=== PATIENT | male | born 1960 | race Caucasian/White ===

== ENCOUNTER 2016-10-14 04:58 | Emergency (ER) | payer OTHER ==
[2016-10-14] VITALS (10 sets, daily range): BP systolic 151–220; BP diastolic 95–138; PULSE 86–107; RESP 16–24; TEMP 97.7–98.1; O2SAT 94–100
[~2016-10-14] VITALS: Ht 188 cm; Wt 107.5 kg
[~2016-10-14 04:58] MED LIST: CETI5SOL PO; CVS20TAB PO; FORT500T3 PO; HYDR12.56 PO; LISI-363 PO; MELO15 PO; SIMV40TA PO
[2016-10-14] MEDS ORDERED: SIMV40TA PO (05:23)
[2016-10-14] MEDS ORDERED: LISI-515 PO ×2 (05:23→09:13)
[2016-10-14] MEDS ORDERED: METF1000 PO (05:23)
[2016-10-14] MEDS ORDERED: OMEP20TA PO (05:23)
[2016-10-14] MEDS ORDERED: GLIP10TA6 PO (05:23)
--- NOTE | 2016-10-14 05:56 | PD ---
HPI Chief Complaint: Injury Time Seen by Provider: 05:22 Travel History International Travel<30 days: No Contact w/Intl Traveler<30days: No Traveled to known affect area: No History of Present Illness HPI The patient is a 56 year old male who presents to the [facility] emergency department with a history of right shoulder pain that began again yesterday while he was at work. He reportedly works as an cash accountant. He denies doing any heavy lifting or any new exercise program. He denies having any trauma to the shoulder. He reports that he has had problems with shoulder pain in the past and many years ago had an MRI of the shoulder. He denies being diagnosed with anything in particular. He reports that he is followed by the [facility]. The patient additionally reports that he does have a history of hypertension, however he was taken off of his blood pressure medicine 6 months ago because his blood pressure was well controlled. The patient denies having any chest pain, chest pressure, or shortness of breath. He does report that last week he had neck pain that radiated up into his head and tingling sensations in the second, third, and fourth digit that occurred last night that seemed to be positional with neck and shoulder movement. The patient has a prior history of diabetes mellitus and hyperlipidemia. He is unsure what his blood sugar has been recently. He has not checked it recently. He has been regularly taking his metformin and glipizide. The patient denies any recent fevers, cough, congestion, abdominal pain, vomiting, diarrhea, urinary symptoms , one-sided weakness, numbness to his extremities, facial droop, difficulty with word finding ability, vision changes, or dizziness. The patient reports that his shoulder pain is worse with any type of movement of his shoulder. The patient reports that the pain in his shoulder radiates from the scapula through his shoulder anteriorly. He denies having any redness or swelling. [facility] Past Medical History Narrative Medical The patient's past medical history is significant for diabetes mellitus, acid reflux, history of benign prostatic hypertrophy, history of hypertension, hyperlipidemia. Diabetes: Yes Patient Takes Glucophage: Yes Gastrointestinal Disorders: Yes (ESOPHAGEAL REFLUX) Genitourinary: Yes (KIDNEY DISEASE/ ENLARGED PROSTATE) Hypertension: Yes Reproductive: Yes (ERECTILE DISORDER) Triglycerides - High: Yes Past Surgical History Narrative Surgical The patient's past surgical history is significant for right hand surgery as a child Social History Alcohol Use: Yes (SOCIALLY) Tobacco Use: No Substance Use: No Allergies-Medications (Allergen,Severity, Reaction): Coded Allergies: Aspirin (Verified Allergy, Unknown, 10/14/16) SWELLING Reported Meds & Prescriptions Reported Meds & Active Scripts Active Lisinopril 20 Mg Tab 20 Mg PO DAILY Boelus (Hydrocodone-Acetaminophen) 5-325 mg Tab 1 Tab PO Q6H PRN Amlodipine (Amlodipine Besylate) 10 Mg Tab 10 Mg PO DAILY Reported Simvastatin 40 Mg Tab 40 Mg PO HS Lisinopril 20 Mg Tab 20 Mg PO DAILY Omeprazole 20 Mg Tab 20 Mg PO DAILY Glipizide 10 Mg Tab 10 Mg PO BIDAC Take 30 minutes before a meal Metformin (Metformin HCl) 1,000 Mg Tab 1,000 Mg PO BIDPC With meals Review of Systems Except as stated in HPI: all other systems reviewed are Neg General / Constitutional: No: Fever Eyes: No: Visual changes HENT: Positive: Headaches, Neck Pain, No: Neck Stiffness Cardiovascular: No: Chest Pain or Discomfort, Dyspnea on exertion Respiratory: No: Shortness of Breath Gastrointestinal: No: Abdominal Pain Genitourinary: No: Dysuria Musculoskeletal: Positive: Myalgias, Arthralgias, Pain Skin: No Rash Neurologic: Positive: Paresthesia (right fingers), No: Weakness, Focal Abnormalities, Headache, Slurred Speech, Sensory Disturbance Psychiatric: No: Depression Endocrine: No: Polydipsia Hematologic/Lymphatic: No: Easy Bruising Physical Exam Narrative General: The patient is a well-developed well-nourished male in no acute distress. Head and Neck exam: Head is normocephalic atraumatic. Eyes: EOMI, pupils are equal round and reactive to light. Nose: Midline septum with pink mucous membranes Mouth: Dentition unremarkable. Moist mucus membranes. Posterior oropharynx is not erythematous. No tonsillar hypertrophy. Uvula midline. Airway patent. Neck: No palpable lymphadenopathy. No nuchal rigidity. No thyromegaly. Cardiovascular: Regular rate and rhythm without murmurs, gallops, or rubs. Lungs: Clear to auscultation bilaterally. No wheezes, rhonchi, or rales. Abdomen: Soft, without tenderness to palpation in all 4 quadrants of the abdomen. No guarding, rebound, or rigidity. Normal bowel sounds are audible. No tenderness on palpation of McBurney's point. Negative Arellano sign. Extremities: No clubbing, cyanosis, or edema. 2+ pulses in all 4 extremities. The patient on examination of the of the area of interest, the right shoulder is noted to have pain with any type of range of motion of the shoulder. He has no redness or swelling. The patient has full range of motion with active assistance, however increased pain with abduction above shoulder height of the shoulder. The patient also has pain with resisted abduction of his right shoulder and into can't testing. Back: No costovertebral angle tenderness to palpation. Neurologic Exam: Cranial nerves 2-12 were intact on exam. Strength is 5/5 in all 4 extremities. No sensory deficits noted. Skin Exam: No rash noted. Intact skin that is warm and dry. Data Data Last Documented VS Vital Signs Date Time Temp Pulse Resp B/P Pulse Ox O2 Delivery O2 Flow Rate FiO2 10/14/16 09:46 98 24 151/95 97 Room Air 10/14/16 06:21 98.1 Orders Electrocardiogram (10/14/16 05:22) Ice/Cold Pack (10/14/16 05:22) Shoulder, Complete (>2vws) (10/14/16 05:22) Ct Brain W/O Iv Contrast(Rout) (10/14/16 06:12) Ct Cerv Spine W/O Contrast (10/14/16 06:12) Complete Blood Count With Diff (10/14/16 06:12) Comprehensive Metabolic Panel (10/14/16 06:12) Creatine Kinase (Cpk) (10/14/16 06:12) Ckmb (Isoenzyme) Profile (10/14/16 06:12) Troponin I (10/14/16 06:12) B-Type Natriuretic Peptide (10/14/16 06:12) Prothrombin Time / Inr (Pt) (10/14/16 06:12) Act Partial Throm Time (Ptt) (10/14/16 06:12) Magnesium (Mg) (10/14/16 06:12) Chest, Single Ap (10/14/16 06:12) Iv Access Insert/Monitor (10/14/16 06:12) Ecg Monitoring (10/14/16 06:12) Oximetry (10/14/16 06:12) Acetamin-Hydrocod 325-5 Mg ([place] 5-325 (10/14/16 06:30) Nitroglycerin Sl (Nitrostat Sl) (10/14/16 06:30) Labetalol Inj (Trandate Inj) (10/14/16 07:30) CKMB (10/14/16 06:27) CKMB% (10/14/16 06:27) Labetalol Inj (Trandate Inj) (10/14/16 08:30) Labs Laboratory Tests Test 10/14/16 06:27 White Blood Count 9.7 TH/MM3 Red Blood Count 5.78 MIL/MM3 Hemoglobin 15.6 GM/DL Hematocrit 45.0 % Mean Corpuscular Volume 77.9 FL Mean Corpuscular Hemoglobin 26.9 PG Mean Corpuscular Hemoglobin 34.6 % Concent Red Cell Distribution Width 14.7 % Platelet Count 168 TH/MM3 Mean Platelet Volume 11.2 FL Neutrophils (%) (Auto) 62.9 % Lymphocytes (%) (Auto) 24.9 % Monocytes (%) (Auto) 9.3 % Eosinophils (%) (Auto) 2.0 % Basophils (%) (Auto) 0.9 % Neutrophils # (Auto) 6.1 TH/MM3 Lymphocytes # (Auto) 2.4 TH/MM3 Monocytes # (Auto) 0.9 TH/MM3 Eosinophils # (Auto) 0.2 TH/MM3 Basophils # (Auto) 0.1 TH/MM3 CBC Comment DIFF FINAL Differential Comment Prothrombin Time 10.2 SEC Prothromb Time International 0.9 RATIO Ratio Activated Partial 25.3 SEC Thromboplast Time Sodium Level 139 MEQ/L Potassium Level 3.9 MEQ/L Chloride Level 104 MEQ/L Carbon Dioxide Level 24.8 MEQ/L Anion Gap 10 MEQ/L Blood Urea Nitrogen 8 MG/DL Creatinine 0.86 MG/DL Estimat Glomerular Filtration 93 ML/MIN Rate Random Glucose 218 MG/DL Calcium Level 8.6 MG/DL Magnesium Level 1.6 MG/DL Total Bilirubin 0.7 MG/DL Aspartate Amino Transf 31 U/L (AST/SGOT) Alanine Aminotransferase 39 U/L (ALT/SGPT) Alkaline Phosphatase 74 U/L Total Creatine Kinase 216 U/L Creatine Kinase MB 1.7 NG/ML Troponin I 0.02 NG/ML B-Type Natriuretic Peptide 51 PG/ML Total Protein 7.5 GM/DL Albumin 3.6 GM/DL [facility] Decision Making Medical Screen Exam Complete: Yes Emergency Medical Condition: Yes Medical Record Reviewed: Yes Interpretation(s) Last Impressions Head CT 10/14/16611 Signed Impressions: Service Date/Time: Friday, October 14, 2016 06:43 - CONCLUSION: Negative noncontrast CT brain. Omi Zimmerman MD Chest X-Ray 10/14/16611 Signed Impressions: Service Date/Time: Friday, October 14, 2016 06:30 - CONCLUSION: The lungs are clear. Omi Zimmerman MD Cervical Spine CT 10/14/16611 Signed Impressions: Service Date/Time: Friday, October 14, 2016 06:43 - CONCLUSION: Straightening of the cervical lordosis. Otherwise negative exam. Omi Zimmerman MD Shoulder X-Ray 10/14/16521 Signed Impressions: Service Date/Time: Friday, October 14, 2016 05:33 - CONCLUSION: Negative exam. Omi Zimmerman MD Differential Diagnosis Right shoulder arthritis, versus rotator cuff tear, versus cervical radiculopathy, versus acute coronary syndrome, versus septic arthritis Narrative Course During the course of the patients emergency department visit, the patients history, examination, and differential diagnosis were reviewed with the patient. The patient had IV access obtained and blood work sent for analysis. The patient was placed on a space technologist with oximetry and blood pressure monitoring. An EKG was done on arrival. The patient's EKG shows a sinus rhythm heart rate of 96, nonspecific T-wave abnormalities, no acute ST segment elevation or depression, QRS duration 105 ms, QTC 406 ms. the patient's blood pressure was noted to be greatly elevated on initial arrival at 220/133. The patient's pulse is 105 on arrival. This could be related to pain. A CT scan of the head and neck was ordered, chest x-ray was ordered, right shoulder x-ray was ordered. The patient was initially provided nitroglycerin sublingual times one. Lortab 5 mg by mouth 1 for pain. The patient has a reported severe aspirin allergy. The patients laboratory studies were reviewed and remarkable for a white count of 9.7, hemoglobin 15.6, platelets 168 with 9.3 monocytes Radiology studies were reviewed and remarkable for a shoulder x-ray that shows no acute abnormality. The patient's case was checked out to the oncoming emergency physician to disposition the patient based on the conclusion of his workup. Diagnosis Primary Impression: Right shoulder pain Qualified Code: M25.511 - Acute pain of right shoulder Scripts Lisinopril 20 Mg Tab20 Mg PO DAILY #30 TAB Ref 0 Prov:Alok Dodge MD 10/14/16 Hydrocodone-Acetaminophen ([place]elus)5-325 mg Tab1 Tab PO Q6H PRN (PAIN) #30 TAB Ref 0 Prov:Alok Dodge MD 10/14/16 Amlodipine 10 Mg Tab10 Mg PO DAILY #30 TAB Ref 0 Prov:Alok Dodge MD 10/14/16 Gabriela Khan MD Oct 14, 2016 05:56
--- NOTE | 2016-10-14 06:18 | RADRPT ---
EXAM DATE/TIME: 10/14/2016 05:33 [facility] COMPARISON: No previous studies available for comparison. INDICATIONS : Right shoulder pain from unknown injury. MEDICAL HISTORY : None. SURGICAL HISTORY : None. ENCOUNTER: Initial ACUITY: 1 day PAIN SCORE: 8/10 LOCATION: Right shoulder FINDINGS: Multiple view examination of the right shoulder demonstrates no evidence of fracture or dislocation. The glenohumeral and acromioclavicular joints are maintained. There is normal range of motion betwe en internal and external rotation. Bony mineralization is normal. CONCLUSION: Negative exam. Omi Zimmerman MD on October 14, 2016 at 6:15 Board Certified Radiologist. This report was verified electronically.
[2016-10-14] MEDS ORDERED: NITROGLYCERIN 0.4 MG SL 25 TABS/BTL SL ONE (06:30)
[2016-10-14] MEDS ORDERED: ACETAMINOPHEN/HYDROcodone 325 MG/5 MG TAB PO ONE (06:30)
--- NOTE | 2016-10-14 06:45 | RADRPT ---
EXAM DATE/TIME: 10/14/2016 06:30 [facility] COMPARISON: CHEST SINGLE AP, March 01, 2013, 13:46. INDICATIONS : Chest pain. MEDICAL HISTORY : None. SURGICAL HISTORY : None. ENCOUNTER: Initial ACUITY: 1 day PAIN SCORE: 110 LOCATION: Right chest FINDINGS: A single view of the chest demonstrates the lungs to be symmetrically aerated without evidence of mas s, infiltrate or effusion. The cardiomediastinal contours are unremarkable. Osseous structures are intact. CONCLUSION: The lungs are clear. Omi Zimmerman MD on October 14, 2016 at 6:43 Board Certified Radiologist. This report was verified electronically.
--- NOTE | 2016-10-14 06:50 | RADRPT ---
EXAM DATE/TIME: 10/14/2016 06:43 [facility] COMPARISON: No previous studies available for comparison. INDICATIONS : Cephalgia with right shoulder pain. RADIATION DOSE: 37.30 CTDIvol (mGy) MEDICAL HISTORY : Hypertension. Diabetes mellitus type 1. Esophageal reflux. SURGICAL HISTORY : None. ENCOUNTER: Initial ACUITY: 1 day PAIN SCALE: 6/10 LOCATION: cranial TECHNIQUE: Multiple contiguous axial images were obtained of the head. Using automated exposure control and adj ustment of the mA and/or kV according to patient size, radiation dose was kept as low as reasonably a chievable to obtain optimal diagnostic quality images. DICOM format image data is available electro nically for review and comparison. FINDINGS: CEREBRUM: The ventricles are normal for age. No evidence of midline shift, mass lesion, hemorrhage or acute in farction. No extra-axial fluid collections are seen. POSTERIOR FOSSA: The cerebellum and brainstem are intact. The 4th ventricle is midline. The cerebellopontine angle i s unremarkable. EXTRACRANIAL: The visualized portion of the orbits is intact. SKULL: The calvaria is intact. No evidence of skull fracture. CONCLUSION: Negative noncontrast CT brain. Omi Zimmerman MD on October 14, 2016 at 6:48 Board Certified Radiologist. This report was verified electronically.
--- NOTE | 2016-10-14 07:00 | RADRPT ---
EXAM DATE/TIME: 10/14/2016 06:43 [facility] COMPARISON: No previous studies available for comparison. INDICATIONS : Right shoulder pain. RADIATION DOSE: 23.66 CTDIvol (mGy) MEDICAL HISTORY : Hypertension. Diabetes mellitus type 2. Esophageal reflux. SURGICAL HISTORY : None. ENCOUNTER: Initial ACUITY: 1 day PAIN SCALE: 6/10 LOCATION: Right neck TECHNIQUE: Volumetric scanning of the cervical spine was performed. Multiplanar reconstructions in the sagittal, coronal and oblique axial planes were performed. Using automated exposure control and adjustment o f the mA and/or kV according to patient size, radiation dose was kept as low as reasonably achievable to obtain optimal diagnostic quality images. DICOM format image data is available electronically f or review and comparison. FINDINGS: There is straightening of the cervical lordosis. Vertebral body height is maintained. No compressio n deformity or spondylolisthesis. The atlantoaxial articulation is intact. The posterior elements a re normal without evidence of locked or perched facets. C2-C3: No fracture seen. The bony neural foramina are patent. C3-C4: No fracture seen. The bony neural foramina are patent. C4-C5: No fracture seen. The bony neural foramina are patent. C5-C6: No fracture seen. The bony neural foramina are patent. C6-C7: No fracture seen. The bony neural foramina are patent. C7-T1: No fracture seen. The bony neural foramina are patent. CONCLUSION: Straightening of the cervical lordosis. Otherwise negative exam. Omi Zimmerman MD on October 14, 2016 at 6:54 Board Certified Radiologist. This report was verified electronically.
[2016-10-14 07:04] LABS: AUTOMATED NEUTROPHIL # 6.1 TH/MM3 (1.8-7.7); BASOPHIL # 0.1 TH/MM3 (0-0.2); BASOPHIL % 0.9 % (0.0-2.0); EOSINOPHIL # 0.2 TH/MM3 (0-0.4); HEMO FLAGS DIFF FINAL; LYMPH % 24.9 % (9.0-44.0); LYMPHOCYTE # 2.4 TH/MM3 (1.0-4.8); MEAN CELL VOLUME 77.9 FL (80.0-100.0); MEAN CORPUSCULAR HEMOGLOBIN 26.9 PG (27.0-34.0); MEAN CORPUSCULAR HGB CONC 34.6 % (32.0-36.0); MONO % 9.3 % (0.0-8.0); NEUT % 62.9 % (16.0-70.0); PLATELET COUNT 168 TH/MM3 (150-450); RED BLOOD COUNT 5.78 MIL/MM3 (4.50-5.90); RED CELL DISTRIBUTION WIDTH 14.7 % (11.6-17.2); WHITE BLOOD COUNT 9.7 TH/MM3 (4.0-11.0)
[2016-10-14 07:13] LABS: ALT (GPT) 39 U/L (12-78)
[2016-10-14 07:16] LABS: APTT (PATIENT) 25.3 SEC (24.3-30.1); INTERNATIONAL NORMALIZED RATIO 0.9 RATIO; PROTHROMBIN TIME - PATIENT 10.2 SEC (9.8-11.6)
[2016-10-14 07:19] LABS: ALKALINE PHOSPHATASE 74 U/L (45-117); ANION GAP 10 MEQ/L (5-15); BICARBONATE 24.8 MEQ/L (21.0-32.0); BLOOD UREA NITROGEN 8 MG/DL (7-18); CHLORIDE 104 MEQ/L (98-107); GLOMERULAR FILTRATION RATE 93 ML/MIN (>89); SODIUM (NA) 139 MEQ/L (136-145); TOTAL BILIRUBIN ADULT 0.7 MG/DL (0.2-1.0)
[2016-10-14 07:20] LABS: AST (GOT) 31 U/L (15-37); CREATINE KINASE 216 U/L (39-308); MAGNESIUM 1.6 MG/DL (1.5-2.5); POTASSIUM 3.9 MEQ/L (3.5-5.1)
[2016-10-14] MEDS ORDERED: LABETALOL HCL 100 MG/20 ML VIAL IV PUSH ONE ×2 (07:30→08:30)
[2016-10-14 07:32] LABS: CKMB 1.7 NG/ML (0.5-3.6)
--- NOTE | 2016-10-14 08:20 | PD ---
Physical Exam Narrative Patient was seen by ED physician and signed out to me. Data Data Last Documented VS Vital Signs Date Time Temp Pulse Resp B/P Pulse Ox O2 Delivery O2 Flow Rate FiO2 10/14/16 08:24 94 22 174/113 96 Room Air 10/14/16 06:21 98.1 Orders Electrocardiogram (10/14/16 05:22) Ice/Cold Pack (10/14/16 05:22) Shoulder, Complete (>2vws) (10/14/16 05:22) Ct Brain W/O Iv Contrast(Rout) (10/14/16 06:12) Ct Cerv Spine W/O Contrast (10/14/16 06:12) Complete Blood Count With Diff (10/14/16 06:12) Comprehensive Metabolic Panel (10/14/16 06:12) Creatine Kinase (Cpk) (10/14/16 06:12) Ckmb (Isoenzyme) Profile (10/14/16 06:12) Troponin I (10/14/16 06:12) B-Type Natriuretic Peptide (10/14/16 06:12) Prothrombin Time / Inr (Pt) (10/14/16 06:12) Act Partial Throm Time (Ptt) (10/14/16 06:12) Urinalysis - C+S If Indicated (10/14/16 06:12) Magnesium (Mg) (10/14/16 06:12) Chest, Single Ap (10/14/16 06:12) Iv Access Insert/Monitor (10/14/16 06:12) Ecg Monitoring (10/14/16 06:12) Oximetry (10/14/16 06:12) Acetamin-Hydrocod 325-5 Mg ([place] 5-325 (10/14/16 06:30) Nitroglycerin Sl (Nitrostat Sl) (10/14/16 06:30) Labetalol Inj (Trandate Inj) (10/14/16 07:30) CKMB (10/14/16 06:27) CKMB% (10/14/16 06:27) Labetalol Inj (Trandate Inj) (10/14/16 08:30) Labs Laboratory Tests Test 10/14/16 06:27 White Blood Count 9.7 TH/MM3 Red Blood Count 5.78 MIL/MM3 Hemoglobin 15.6 GM/DL Hematocrit 45.0 % Mean Corpuscular Volume 77.9 FL Mean Corpuscular Hemoglobin 26.9 PG Mean Corpuscular Hemoglobin 34.6 % Concent Red Cell Distribution Width 14.7 % Platelet Count 168 TH/MM3 Mean Platelet Volume 11.2 FL Neutrophils (%) (Auto) 62.9 % Lymphocytes (%) (Auto) 24.9 % Monocytes (%) (Auto) 9.3 % Eosinophils (%) (Auto) 2.0 % Basophils (%) (Auto) 0.9 % Neutrophils # (Auto) 6.1 TH/MM3 Lymphocytes # (Auto) 2.4 TH/MM3 Monocytes # (Auto) 0.9 TH/MM3 Eosinophils # (Auto) 0.2 TH/MM3 Basophils # (Auto) 0.1 TH/MM3 CBC Comment DIFF FINAL Differential Comment Prothrombin Time 10.2 SEC Prothromb Time International 0.9 RATIO Ratio Activated Partial 25.3 SEC Thromboplast Time Sodium Level 139 MEQ/L Potassium Level 3.9 MEQ/L Chloride Level 104 MEQ/L Carbon Dioxide Level 24.8 MEQ/L Anion Gap 10 MEQ/L Blood Urea Nitrogen 8 MG/DL Creatinine 0.86 MG/DL Estimat Glomerular Filtration 93 ML/MIN Rate Random Glucose 218 MG/DL Calcium Level 8.6 MG/DL Magnesium Level 1.6 MG/DL Total Bilirubin 0.7 MG/DL Aspartate Amino Transf 31 U/L (AST/SGOT) Alanine Aminotransferase 39 U/L (ALT/SGPT) Alkaline Phosphatase 74 U/L Total Creatine Kinase 216 U/L Creatine Kinase MB 1.7 NG/ML Troponin I 0.02 NG/ML B-Type Natriuretic Peptide 51 PG/ML Total Protein 7.5 GM/DL Albumin 3.6 GM/DL [facility] Supervised Visit with TIMMY: No Interpretation(s) 8:17 AM. EKG shows sinus rhythm nonspecific ST-T wave change. Unchanged from previous EKG. Last Impressions Head CT 10/14/16611 Signed Impressions: Service Date/Time: Friday, October 14, 2016 06:43 - CONCLUSION: Negative noncontrast CT brain. Omi Zimmerman MD Chest X-Ray 10/14/16611 Signed Impressions: Service Date/Time: Friday, October 14, 2016 06:30 - CONCLUSION: The lungs are clear. Omi Zimmerman MD Cervical Spine CT 10/14/1612 Signed Impressions: Service Date/Time: Friday, October 14, 2016 06:43 - CONCLUSION: Straightening of the cervical lordosis. Otherwise negative exam. Omi Zimmerman MD Shoulder X-Ray 10/14/16 0522 Signed Impressions: Service Date/Time: Friday, October 14, 2016 05:33 - CONCLUSION: Negative exam. Omi Zimmerman MD 8:17 AM. CBC within normal limit. CMP within normal limit. Cardiac enzymes are normal. Narrative Course 9 11 AM. Patient was given labetalol 20 mg IV. Blood pressure came under more control. Patient will be discharged with medications. Diagnosis Primary Impression: Right shoulder pain Qualified Code: M25.511 - Acute pain of right shoulder Additional Impression: Uncontrolled hypertension Patient Instructions: General Instructions Additional Instruction: Take medications as directed. Follow-up with orthopedist and personal physician for right shoulder check and blood pressure check. Return if worse. Med/Other Pt SpecificInfo: Prescription(s) given Scripts Lisinopril 20 Mg Tab20 Mg PO DAILY #30 TAB Ref 0 Prov:Alok Dodge MD 10/14/16 Hydrocodone-Acetaminophen ([place])5-325 mg Tab1 Tab PO Q6H PRN (PAIN) #30 TAB Ref 0 Prov:Alok Dodge MD 10/14/16 Amlodipine 10 Mg Tab10 Mg PO DAILY #30 TAB Ref 0 Prov:Alok Dodge MD 10/14/16 Disposition: 01 DISCHARGE HOME Condition: Stable Alok Dodge MD Oct 14, 2016 08:20
[2016-10-14] MEDS ORDERED: AMLO10TA2 PO (09:13)
[2016-10-14] MEDS ORDERED: NORC5TAB PO (09:13)
--- NOTE | 2016-10-14 17:08 | EKG ---
Date Performed: 10/14/2016 Time Performed: 05:53:54 PTAGE: 56 years EKG: Sinus rhythm NONSPECIFIC T-WAVE ABNORMALITY BORDERLINE ECG PREVIOUS TRACING : 03/01/2013 14.56 Compared to prior tracing no significant change DOCTOR: Matthew Douglas Interpretating Date/Time 10/14/2016 17:08:11
== END 2016-10-14 09:55 | disposition home or self-care (01) ==
LOC: NEPE 04:58
DX: M25.511 Pain in right shoulder (principal); I10 Essential (primary) hypertension; R94.31 Abnormal electrocardiogram [ECG] [EKG]; M54.2 Cervicalgia; R20.2 Paresthesia of skin; E11.9 Type 2 diabetes mellitus without complications; E78.5 Hyperlipidemia, unspecified; Z79.84 Long term (current) use of oral hypoglycemic drugs; Z87.19 Personal history of other diseases of the digestive system; Z87.438 Personal history of other diseases of male genital organs; Z87.448 Personal history of other diseases of urinary system
CPT/HCPCS: 70450; 71010; 72125; 73030; 80053; 82550; 82552; 83735; 83880; 84484; 85025; 85610; 85730; 93005; 96374; 96376